=== PATIENT | female | born 1935 | race Caucasian/White ===

== ENCOUNTER 2017-11-20 12:42 | Emergency (ER) | payer MEDICARE ==
[~2017-11-20] VITALS: Ht 152.4 cm; Wt 54.4 kg
[~2017-11-20 12:42] MED LIST: ACID CONTROL20 MG PO; ADULT LOW DOSE81 MG PO; ALDACTONE25 MG PO; ATENOLOL 25MG T25 M1 PO; BAYER CHEWABLE81 MG PO; BUSPIRONE HCL5 MG PO; CELEXA20 MG PO; CITRACAL + D C1 EACH PO; COLACE100 MG PO; COUMADIN; COUMADIN 2 MG TA2 M1 PO; DESYREL100 MG PO; FLEXERIL PO; GLUCOTROL10 MG PO; HYDROCODON-ACE1 EAC7 PO; IRON18 M1 PO; KLOR-CON 1010 MEQ PO; LANOXIN 0.120.125 M1 PO; LASIX 20 MG TAB20 MG PO; LIDODERM 5%1 PATC1 TRANSDERM; LISINOPRIL20 MG PO; LORTAB 5 MG/5001 TA1 PO; METFORMIN HCL500 MG PO; METFORMIN PO; ZETIA10 MG PO
[2017-11-20] MEDS ORDERED: MI ACID LIQUID355 ML PO (12:50)
[2017-11-20] MEDS ORDERED: MIRALAX17 GM PO (12:51)
[2017-11-20] MEDS ORDERED: DURAGESIC1 EAC3 TRANSDERM (12:51)
[2017-11-20] MEDS ORDERED: ARTHRITIS PAIN650 M2 PO (12:51)
[2017-11-20] MEDS ORDERED: SENNA8.6 MG PO (12:51)
[2017-11-20] MEDS ORDERED: IPRATROPIU0.2 MG/1 M INH (12:52)
[2017-11-20 14:47] VITALS: BP 150/86
--- NOTE | 2017-11-20 17:14 | EKG ---
[place] [address] ELECTROCARDIOGRAM REPORT Name: GERRY LAINEZSUNITHA Varghese Room: [facility]#: [id number] Admission: 11/20/17 Attend Phys: Discharge: Date of : 31 Report #: [id number] THIS REPORT FOR: //name// [facility] ED Test Date: 2017-11-20 Test Time: 12:55:24 Pat Name: EVARISTO LAINEZ Department: Room: Gender: F Electrical Test Technician: AKANKSHA : 1935 Requested By: Rosey Chang Order Number: [id number] Reading MD: Addison Harvey Measurements Intervals [place] Rate: 86 P: NC: QRS: -46 QRSD: 102 T: 140 QT: 349 QTc: 418 Interpretive Statements Atrial fibrillation Left anterior fascicular block Abnormal R-wave progression, late transition LVH with secondary repolarization abnormality Compared to ECG 07/02/2009 15:33:43 Left anterior fascicular block now present Early repolarization now present Left-axis deviation no longer present ST (T wave) deviation no longer present Possible ischemia no longer present Electronically Signed On 11-20-2017 17:14:36 CDT by Addison Harvey [email or web address] <ELECTRONICALLY SIGNED> By: Addison Harvey MD, FACC 11/20/17 1714 1255 1255 Addison Harvey MD, FAC /EPI
== END 2017-11-20 14:49 | disposition home or self-care (01) ==
LOC: M.ERS 12:42
DX: M25.562 Pain in left knee (principal); E11.9 Type 2 diabetes mellitus without complications; I48.91 Unspecified atrial fibrillation; I10 Essential (primary) hypertension; G89.29 Other chronic pain; M54.9 Dorsalgia, unspecified; Z90.710 Acquired absence of both cervix and uterus; Z90.49 Acquired absence of other specified parts of digestive tract; Z91.041 Radiographic dye allergy status; Z88.8 Allergy status to other drugs, medicaments and biological substances; W18.39XA Other fall on same level, initial encounter; Y93.89 Activity, other specified; Y92.89 Other specified places as the place of occurrence of the external cause; Y99.8 Other external cause status

== ENCOUNTER 2018-05-20 20:02 | Inpatient (IN) | payer MEDICARE ==
[~2018-05-20] VITALS: Ht 167.6 cm; Wt 52.2 kg
[~2018-05-20 20:02] MED LIST changes: -ACID CONTROL20 MG PO; +ARTHRITIS PAIN650 M2 PO; +DURAGESIC1 EAC5 TRANSDERM; +FLOMAX0.4 MG PO; +GLUCOPHAGE1000 MG PO; +IPRATROPIU0.2 MG/1 M INH; -LASIX 20 MG TAB20 MG PO; +LASIX 40 MG TAB40 M2 PO; +LEVSIN0.125 MG PO; +LISINOPRIL10 MG PO; -LISINOPRIL20 MG PO; +MACROBID 100 M100 M2 PO; +MI ACID LIQUID355 ML PO; +MIRALAX17 GM PO; +MUCINEX600 MG PO; +PEPCID20 MG PO; +PREDNISONE 20 M20 MG PO; +SENNA8.6 MG PO; +TRAZODONE HCL50 MG PO; +WELLBUTRIN SR150 MG PO
[2018-05-20 20:06] VITALS: BP 93/53
[2018-05-20 20:43] LABS: HEMOGLOBIN 12.2 gm/dL (12.0-15.0); MCH 31.2 pg (26.0-34.0); MCV 94.5 fL (80.0-100.0); MPV 9.3 fl. (7.2-11.1); NUCLEATED RBCS 0 /100WBC; PLATELET COUNT* 246 thou/uL (150-400); RBC 3.92 mil/uL (4.20-5.00); RDW-CV 14.7 % (10.5-14.5); WBC 19.8 thou/uL (4.0-11.0)
[2018-05-20] MEDS ORDERED: MELATONIN3 MG PO (20:46)
[2018-05-20] MEDS ORDERED: SENNA8.6 MG (20:47)
[2018-05-20] MEDS ORDERED: POTASSIUM20 PO (20:47)
[2018-05-20] MEDS ORDERED: COUMADIN 1MG TAB1 M1 PO (20:48)
[2018-05-20] MEDS ORDERED: SPIRONOLACTONE25 M1 PO (20:48)
[2018-05-20] MEDS ORDERED: COUMADIN 2.5MG2.5 M1 PO (20:52)
[2018-05-20] MEDS ORDERED: COUMADIN 3 MG TA3 M1 PO (20:54)
[2018-05-20] MEDS ORDERED: NORCO 5-325 TA1 EACH PO (20:59)
[2018-05-20 21:02] LABS: INR 1.7; PROTIME 17.7 Seconds (9.20-11.50)
[2018-05-20] MEDS ORDERED: GABAPENTIN 100100 MG PO (21:02)
[2018-05-20] MEDS ORDERED: ONDANSETRON HCL4 M2 PO (21:02)
[2018-05-20 21:10] LABS: ABSOLUTE LYMPHOCYTES 2.4 thou/uL (0.8-5.3); ABSOLUTE MONOCYTES 0.8 thou/uL (0.0-1.2); ABSOLUTE NEUTROPHILS 16.6 thou/uL (1.6-8.1); PLATELET ESTIMATE ADEQUATE
[2018-05-20 21:11] LABS: ANION GAP 7 mmol/L (7-16); BUN 85 mg/dL (7-18); CALCIUM 8.9 mg/dL (8.5-10.1); CHLORIDE 108 mmol/L (98-107); CO2 31 mmol/L (21-32); GLUCOSE 144 mg/dL (70-99); POTASSIUM 5.4 mmol/L (3.5-5.1); SODIUM 146 mmol/L (136-145); TROPONIN-I LEVEL <0.06 ng/mL (<0.06)
[2018-05-20 21:12] LABS: ALBUMIN 2.8 g/dL (3.4-5.0); ALKALINE PHOSPHATASE 108 U/L (46-116); LIPASE 35 U/L (73-393); NT-PRO BRAIN NAT PEPTIDE 5623 pg/mL (<300); SGOT 19 U/L (15-37); SGPT 22 U/L (30-65); TOTAL BILIRUBIN 0.7 mg/dL (<0.1-1.0); TOTAL PROTEIN 6.2 g/dL (6.4-8.2)
[2018-05-20 23:56] LABS: URINE BILIRUBIN NEGATIVE (Negative); URINE BLOOD NEGATIVE (Negative); URINE CLARITY CLEAR; URINE COLOR YELLOW; URINE GLUCOSE-RANDOM NEGATIVE (Negative); URINE KETONES TRACE (Negative); URINE LEUKOCYTES-REFLEX TRACE (Negative); URINE NITRITE-REFLEX NEGATIVE (Negative); URINE PROTEIN NEGATIVE (Negative); URINE UROBILINOGEN 0.2 E.U./dl (0.2-1.0)
[2018-05-21 00:22] LABS: SQUAMOUS 4-10 Moderate /LPF (0-3)
[2018-05-21 00:23] LABS: HYALINE CASTS 0-3 Few /LPF (None Seen)
[2018-05-21 00:24] LABS: BACTERIA-REFLEX >30 Many /HPF (None Seen); URINE RBC 0-2 Rare /HPF (0-2); WBC CLUMPS Few (None Seen)
[2018-05-21 00:37] LABS: CRYSTALS None Seen /LPF (None Seen)
[2018-05-21 02:27] VITALS: BP 99/50
[2018-05-21 04:00] VITALS: BP 102/64
--- NOTE | 2018-05-21 06:29 | NUR ---
83 Y/O FEMALE ADMITTED TO TELEMETRY ROOM 201 WITH AN ADMITTING DIAGNOSIS OF ARF, HYPOTENSION, TACHYCARDIA. PT IS A&O X 1, EXPRESSIVE APHASIA. TRACING AFIB ON MONITOR. VSS. IVF INFUSING PER EMAR. ASSESSMENT COMPLETED CHARTED. HOURLY ROUNDING AND FALL PRECAUTIONS IN PLACE FOR SAFETY. Q2 TURNS TO MAINTAIN SKIN INTEGRITY. CLWR.
[2018-05-21 08:19] VITALS: BP 98/69
--- NOTE | 2018-05-21 09:53 | NUR ---
ASSUMED CARE OF PT THIS AM AROUND 0715- CARDAI MONITOR IN PLACE ORDERED, TRACING A-FIB/RATE CONTROLLED-UPON ASSESSMENT PT NOTED TO BE RESTING IN BED, RESTLESS AT TIMES- PT A&O X1, APHASIA NOTED- INCONTINENT OF BOWEL/HUMPHREYS IN PLACE D/D CLEAR FAUZIA URINE THIS AM- BED REST IN PLACE WITH Q 2 HOUR TURNS- LCTA, RESP EVEN ADND UN-LABORED- VSS, O2 SAT 100% ON 2L VIA NC- ABD SOFT/FLAT/NON-TENDER, BS X4 QUADS- SMALL INCONTINENT BM NOTED THIS AM- POOR PO INTAKE NOTED THIS AM WITH BREAKFAST- IV NOTED TO LEFT WRIST INTACT, IVF INFUSSING PRESCIBED- SEPSIS SCREEN NOTED POSITIVE THIS AM- NOTIFIED WITH ORDERS NOTED FOR 1L IVF BOLUS WITH MAINTENCE FLUIDS INCREASED TO 80ML/HR AND IV ABT ROCEPHIN STARTED AND GIVEN PRESCIBED- NEPHROLOGY CONSULT INITIATED THIS SHIFT R/T LEFTY- OLD FENT PATCH REMOVED FROM LEFT BACK SHOULDER WITH NEW PLACED TO RIGHT BACK SHOULDER THIS AM- BARRIOR CREAM TO BOTTOM INDICATED- CALL LIGHT AND PERSONAL BELONGINGS WITH IN REACH- HOURLY ROUNDS IN PLACE R/T SAFETY/NEEDS- BED/CHAIR ALARM IN PLACE R/T SAFETY- ALL NEEDS MET AT THIS TIME-TM
[2018-05-21 12:47] VITALS: BP 94/53
--- NOTE | 2018-05-21 12:47 | NUR ---
ST COG AND SWALLOW EVAL ATTEMPTED THIS DATE. PT'S FAMILY AT BEDSIDE. PT'S FAMILY REFUSED ST SERVICES. ST ATTEMPTED TO PROVIDE COMMUNICATION PICTURES TO ASSIST PT WITH COMMUNICATING BASIC WANTS AND NEEDS. PT'S FAMILY REFUSED THIS AND REPORTED PT HAS TRIED USING PICTURES IN THE PAST AND IT DID NOT WORK. PT'S FAMILY REPORTED THAT PT IS IN TOO MUCH PAIN AND UNCOMFORTABLE TO COMPLETE EVAL. FAMILY REPORTED IT IS TIME TO JUST KEEP THE PT COMFORTABLE INSTEAD OF REHABILITATING COMMUNICATION ABILITIES. ST WILL FOLLOW UP WITHIN THE NEXT 2-3 DAYS.
--- NOTE | 2018-05-21 13:26 | NUR ---
Nutrition: Consult received for "wt loss." Pt admitted with ARF, hypotension, dehydration. Wt in Mar, per [employer], was 123#; currently 97#. Some wt change d/t hydration status. Pressure ulcers on heels. Pt has expressive aphasia. ST will try swallow eval again in 2-3 days. H/o DM, CHF, UTI. Labs: BG 162, alb 2.8, prealb 12.6. RD ordered Ensure Clear tid for added nutrition while on CLD. Underweight R/T wt loss AEB 123# to 97# in one month. Some is R/T hydration status. Pt appears at mild to moderate nutrition risk. Will follow wt, diet order, po intake, labs 05/24/18.
--- NOTE | 2018-05-21 14:00 | NUR ---
CM spoke with Pt's son via phone. Pt is a LTC resident at [facility]. Son requested a hospice eval with [facility]. [place] systems planner to fax referral, updated Shira, [facility] liaison with [facility]. Plan return to [facility] mem care at [place]. SABRINA spoke with Shelley nurse at [facility], they are able to accept Pt back at [place]. Pt resides on the [facility] and the number is [phone]
--- NOTE | 2018-05-21 14:10 | NUR ---
I have reviewed the documentation by ADALGISA DOE from TODAY to 05/21/18 and I concur with it. CELESTE CHURCH
--- NOTE | 2018-05-21 14:18 | NUR ---
CONSTRUCTION SUPERVISOR INFORMED OF THE NEED TO CONTACT [facility] TO ARRANGE HOSPICE INFO VISIT AND EVAL. D/C IT TECHNICAL SPECIALIST SPOKE TO FELIX WITH [facility] TO INFORM OF THE REFERRAL AND FAXED THE PATIENT'S FACESHEET, AND CLINICAL INFO. D/C IT TECHNICAL SPECIALIST AWAITING RETURN CALL FROM [employer] TO INFORM OF WHEN INFO VISIT AND EVAL WILL BE COMPLETED. CM WILL REMAIN AVIALABLE TO ASSIST AND FOLLOW NEEDED. [facility] PHONE: [phone] FAX: [phone]
--- NOTE | 2018-05-21 16:25 | NUR ---
PT CURRNELTY RESTING IN BED, EDGE STITCHER CONTINUED ORDERED TRACING A-FIB-IV TO LEFT WRIST INTACT IVF INFUSSING PRESCIBED- 2L BOLUS GIVEN PRESCIBED THIS SHIFT- POOR PO INTAKE NOTED THIS SHIFT WITH MEALS- ASSISTANCE REQUIRED WITH MEALS- FAMILY AT SIDE MOST SHIFT- HOSPICE CONSULTED PER DPOA WITH PLANS TO D/C ON HOSPICE- ACCU CHECKS INDICATED THIS SHIFT- DIANELYS HEELS CLEANED WITH WW THIS SHIFT, ABD APPLIED, WRAPPED WITH BULKE GAUZE AND SECURED WITH TAPE- PRN FENT GIVEN TIMES 1 THIS SHIFT AT 1429- HYDROCODONE AT 1225 GIVEN, BUT PT NOTED TO SPIT HALF OUT- ENSURE ORDERED WITH MEALS THIS SHIFT- CALL LIGHT AND PERSONAL BELONGINGS WITH IN REACH- BED ALARM IN PLACE R/T SAFETY- HOURLY ROUNDS IN PLACE R/T SAFETY/NEEDS- ALL NEEDS MET AT THIS TIME-WCTM
--- NOTE | 2018-05-21 17:08 | EKG ---
[place] [address] ELECTROCARDIOGRAM REPORT Name: EVARISTO LAINEZ Halima Room: [address] ADM IN M.R.#: [id number] Admission: 05/20/18 Attend Phys: Amy Solares Discharge: Date of : 31 Report #: [id number] THIS REPORT FOR: //name// [facility] ED Test Date: 2018-05-20 Test Time: 22:56:19 Pat Name: EVARISTO LAINEZ Department: Room: [facility] [place] [facility] [place] Gender: F Paint Stock Clerk: : 1935 Requested By: Sarah Bentley Order Number: [id number] MD: Phillip Cuevas Measurements Intervals [place] Rate: 112 P: SC: QRS: -55 QRSD: 105 T: 132 QT: 338 QTc: 462 Interpretive Statements Atrial fibrillation Left anterior fascicular block Abnormal R-wave progression, late transition Repol abnrm suggests ischemia, lateral leads Compared to ECG 03/28/2018 16:41:19 No significant changes Electronically Signed On 05-21-2018 17:08:32 CDT by Phillip Cuevas [email or web address] <ELECTRONICALLY SIGNED> By: Phillip Cuevas MD, FACC 05/21/18 1708 2256 2256 Phillip Cuevas MD, FAC /EPI
[2018-05-21 17:38] VITALS: BP 112/71
[2018-05-22] VITALS (9 sets, daily range): BP systolic 99–181; BP diastolic 56–145
[2018-05-22 05:33] LABS: ABSOLUTE EOSINOPHILS 0.2 thou/uL (0.0-0.7); ABSOLUTE MONOCYTES 0.9 thou/uL (0.0-1.2); ABSOLUTE NEUTROPHILS 10.8 thou/uL (1.6-8.1); BASOPHILS 0.2 %; EOSINOPHILS 1.4 %; HEMATOCRIT 35.2 % (37.0-47.0); HEMOGLOBIN 11.1 gm/dL (12.0-15.0); LYMPHOCYTES 7.7 %; MCHC 31.7 g/dL (28.0-37.0); MPV 9.1 fl. (7.2-11.1); NUCLEATED RBCS 0 /100WBC; POLYS 83.7 %; RBC 3.49 mil/uL (4.20-5.00); RDW-CV 15.2 % (10.5-14.5); WBC 12.9 thou/uL (4.0-11.0)
--- NOTE | 2018-05-22 05:42 | NUR ---
RECEIVED REPORT AND ASSUMED CARE AT 1900. VSS. CARDIAC MONITORING IN PLACE. PT APPEARS TO BE ANXIOUS/RESTLESS. EXPRESSIVE APHASIA. GIMACING AND HOLDING STOMACH. PT REPOSITIONED, PRN MEDICATION ADMIN PER ORDERS. PT BEDREST, ASSESSMENT COMPLETED CHARTED. BED LOCKED IN LOWEST POSITION, CALL LIGHT WITHIN REACH, BD ALARM ON. POSITION CHANGED EVERY TWO HOURS, HEELS OFF LOADED. PT NON COMPLIANT WITH PO MEDICATION, REFUSING TO SWALLOW MEDICATION. HOURLY ROUNDING COMPLETED AND ALL NEEDS MET.
[2018-05-22 05:44] LABS: INR 1.9; PROTIME 19.3 Seconds (9.20-11.50)
[2018-05-22 05:47] LABS: MCV 100.9 fL (80.0-100.0); PLATELET COUNT* 162 thou/uL (150-400)
[2018-05-22 05:59] LABS: ALBUMIN 2.2 g/dL (3.4-5.0); CALCIUM 8.1 mg/dL (8.5-10.1); POTASSIUM 4.6 mmol/L (3.5-5.1); TOTAL BILIRUBIN 0.3 mg/dL (<0.1-1.0); TOTAL PROTEIN 5.4 g/dL (6.4-8.2)
[2018-05-22 06:01] LABS: CREATININE 1.5 mg/dL (0.6-1.3)
--- NOTE | 2018-05-22 15:06 | NUR ---
WOUND CARE NOTE: ASSESSMENT FOR PRESSURE ULCERS TO BILATERAL HEELS. RIGHT HEEL: UNSTAGEABLE PRESSURE ULCER COMPLICATED BY DIABETES. WOUND IS APPROXIMATELY 1.5X0.5X0.1. DRY, BLACK WOUND BED. JAQUI-WOUND WITH SHADOWING, CALLUS. BLANCHABLE REDNESS. FEET ARE COOL TO TOUCH. PATIENT VERY ANXIOUS DURING ASSESSMENT, KEPT PULLING HER FEET AWAY. UNABLE TO PALPATE PULSES. FAINT PEDAL PULSE HEARD ON DOPPLER. PAINTED ULCERATION WITH BETADINE. COVERED WITH ABD. SECURED WITH KERLIX. APPLIED HEELMEDIX BOOT LEFT HEEL: UNSTAGEABLE PRESSURE ULCER COMPLICATED BY DIABETES. WOUND IS APPROXIMATELY 0.5X1X0.1. DRY, BLACK WOUND BED. JAQUI-WOUND WITH SHADOWING, CALLUS. BLANCHABLE REDNESS. FOOT IS COOL TO TOUCH, ABLE TO DOPPLE PEDAL PULSE. VERY ANXIOUS DURING ASSESSMENT, KEPT PULLING FEET AWAY. PAINTED ULCERATION WITH BETADINE. COVERED WITH ABD. SECURED WITH KERLIX. APPLIED HEELMEDIX BOOT. UNABLE TO EDUCATE PATIENT AT THIS TIME ON WOUND HEALING, PATIENT EXTREMELY ANXIOUS. RECOMMEND HEELMEDIX BOOTS, BILATERALLY DAILY DRESSING CHANGES ENCOURAGE GOOD NUTRTION/HYDRATION FOR WOUND HEALING
--- NOTE | 2018-05-22 16:32 | CON ---
[address] [address] CONSULTATION Name: EVARISTO LAINEZ Room: [address] IN M.R.#: [id number] Admission: 05/20/18 Attend Phys: Amy Solares Discharge: Date of : 31 Report #: [id number] THIS REPORT FOR: //name// CC: Ana Cristina Bonilla DATE OF SERVICE: 05/21/2018 REQUESTING PHYSICIAN: Sukhjinder Granados MD REASON FOR CONSULTATION: Acute kidney injury. 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 She is a [facility] resident and usually does not walk, does not talk, follows some simple commands. She was transferred here for weight loss and poor p.o. intake. She was admitted and was diagnosed with acute kidney injury, possible pneumonia, possible UTI. Her creatinine was 3.0, potassium 5.4. Her blood cultures preliminary with no growth. Urine cultures were pending. Her urinalysis showed trace white blood cells, some bacteria. 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 She was seen by urologist in the past. She was started on IV fluids and on Rocephin. She is DNR. SOCIAL HISTORY: [facility] resident. No tobacco or alcohol abuse. FAMILY HISTORY: Noncontributory. REVIEW OF SYSTEMS: Unobtainable. PAST MEDICAL HISTORY: As mentioned earlier. PHYSICAL EXAMINATION: GENERAL: She is awake, alert. VITAL SIGNS: Blood pressure 94/53, heart rate 87, afebrile. HEENT: Pupils are round. NECK: Supple. LUNGS: Decreased air movement. CARDIOVASCULAR: Regular rate. [address] [address] CONSULTATION Name: EVARISTO LAINEZ Halima Room: [address] IN [facility].#: [id number] Admission: 05/20/18 Attend Phys: Amy Solares Discharge: Date of : 31 Report #: [id number] ABDOMEN: Soft. LOWER EXTREMITIES: No edema. LABORATORY DATA: Significant for a white count of 19.8. Serum sodium 146, potassium 5.4, chloride 108, carbon dioxide 31, BUN 85, creatinine 3.0. ASSESSMENT: 1. Acute kidney injury due to poor p.o. intake and also she was taking spironolactone, lisinopril and potassium. 2. Hyperkalemia due to spironolactone, potassium, lisinopril, and acute kidney injury. 3. Dementia. 4. Possible urinary tract infection. 5. Possible pneumonia. PLAN: 1. Gentle hydration. 2. Avoid spironolactone, avoid AUSTYN inhibitors, avoid angiotensin receptor blockers, and avoid potassium. 3. Follow her labs. 4. The patient is not a dialysis candidate. Discussed with the family and they agreed with the plan. <ELECTRONICALLY SIGNED> By: Phil Castellanos MD 05/22/18 1632 1628 [id number] Castellanos MD /PMT
--- NOTE | 2018-05-23 01:26 | NUR ---
ASSUMED CARE OF PT AT 1900. PT IS VERY CONFUSED. NO COMPLAINTS OF PAIN AT THIS TIME. VSS. PT IS IN SINUS RYTHM ON THE TELEMETRY. PT IS RESTING COMFORTABLY IN BED. RESPIRATIONS ARE EVEN AND NONLABORED. WILL CONTINUE TO MONITOR PT.
[2018-05-23 03:57] VITALS: BP 100/71
[2018-05-23 05:08] LABS: INR 2.8; PROTIME 28.6 Seconds (9.20-11.50)
[2018-05-23 05:21] LABS: ALBUMIN 2.3 g/dL (3.4-5.0); CALCIUM 8.5 mg/dL (8.5-10.1); CREATININE 1.2 mg/dL (0.6-1.3); POTASSIUM 3.9 mmol/L (3.5-5.1); TOTAL BILIRUBIN 0.2 mg/dL (<0.1-1.0); TOTAL PROTEIN 5.5 g/dL (6.4-8.2)
[2018-05-23 07:30] VITALS: BP 97/47
[2018-05-23 08:44] LABS: ABSOLUTE EOSINOPHILS 0.2 thou/uL (0.0-0.7); ABSOLUTE MONOCYTES 0.6 thou/uL (0.0-1.2); ABSOLUTE NEUTROPHILS 6.5 thou/uL (1.6-8.1); BASOPHILS 0.2 %; EOSINOPHILS 2.9 %; HEMATOCRIT 35.6 % (37.0-47.0); HEMOGLOBIN 11.6 gm/dL (12.0-15.0); LYMPHOCYTES 11.5 %; MCH 31.8 pg (26.0-34.0); MCHC 32.6 g/dL (28.0-37.0); MCV 97.5 fL (80.0-100.0); MPV 8.9 fl. (7.2-11.1); NUCLEATED RBCS 0 /100WBC; PLATELET COUNT* 193 thou/uL (150-400); POLYS 78.4 %; RBC 3.65 mil/uL (4.20-5.00); RDW-CV 14.9 % (10.5-14.5); WBC 8.3 thou/uL (4.0-11.0)
[2018-05-23 12:34] VITALS: BP 133/69
[2018-05-23 14:35] LABS: PREALBUMIN 11.9 mg/dL (18.0-35.7)
[2018-05-23 15:52] LABS: POTASSIUM 3.8 mmol/L (3.5-5.1)
[2018-05-23 16:18] VITALS: BP 122/68
[2018-05-23 19:25] VITALS: BP 118/65
[2018-05-24] VITALS: BP 144/73
--- NOTE | 2018-05-24 02:10 | NUR ---
ASSUMED CARE OF PT AT 1900. PT HAS BEEN SLEEPING SINCE BEGINNING OF SHIFT. PT A Q2 TURN. VSS. NO SIGNS OF PAIN AT THIS TIME. PT IS IN A FIB ON THE TELEMETRY. PT IS RESTING COMFORTABLY IN BED. RESPIRATIONS ARE EVEN AND NONLABORED. WILL CONTINUE TO MONITOR PT.
[2018-05-24 04:00] VITALS: BP 116/72
[2018-05-24 05:26] LABS: PROTIME 40.5 Seconds (9.20-11.50)
[2018-05-24 05:39] LABS: POTASSIUM 3.4 mmol/L (3.5-5.1)
[2018-05-24 12:00] VITALS: BP 120/70
--- NOTE | 2018-05-24 12:07 | NUR ---
SUPERINTENDENT REFUSE DISPOSAL INFORMED BY DR ABBASI THAT THE PATIENT WILL REMAIN IN THE HOSPITAL OVER THE WEEKEND. PLAN REMAINS THAT THE PATIENT WILL RETURN TO A MEMORY CARE BED AT [facility]. CM WILL REMAIN AVAILABLE TO ASSIST AND FOLLOW NEEDED.
[2018-05-24 16:00] VITALS: BP 145/82
[2018-05-24 19:25] VITALS: BP 143/86
[2018-05-25] VITALS: BP 135/77
--- NOTE | 2018-05-25 03:26 | NUR ---
ASSUMED CARE OF PT AT 1900. PT IS VERY LETHARGIC AND HAS BEEN ASLEEP. PT IS A Q2 TURN. VSS. PT IS IN A FIB ON THE TELEMETRY. PT IS RESTING COMFORTABLY IN BED. RESPIRATIONS ARE EVEN AND NONLABORED. WILL CONTINUE TO MONITOR PT.
[2018-05-25 04:00] VITALS: BP 145/79
[2018-05-25 04:57] LABS: HEMATOCRIT 30.4 % (37.0-47.0); HEMOGLOBIN 10.3 gm/dL (12.0-15.0); MCH 32.3 pg (26.0-34.0); MCHC 33.7 g/dL (28.0-37.0); MCV 95.8 fL (80.0-100.0); MPV 8.7 fl. (7.2-11.1); RBC 3.17 mil/uL (4.20-5.00); RDW-CV 14.4 % (10.5-14.5); WBC 6.2 thou/uL (4.0-11.0)
[2018-05-25 05:04] LABS: PROTIME 40.6 Seconds (9.20-11.50)
[2018-05-25 05:07] LABS: CALCIUM 7.6 mg/dL (8.5-10.1); CREATININE 0.8 mg/dL (0.6-1.3); MAGNESIUM 1.4 mg/dL (1.8-2.4); POTASSIUM 3.2 mmol/L (3.5-5.1); TOTAL BILIRUBIN 0.2 mg/dL (<0.1-1.0); TOTAL PROTEIN 4.7 g/dL (6.4-8.2)
--- NOTE | 2018-05-25 07:15 | NUR ---
CHANGE OF SHIFT BEDSIDE REPORT GIVEN PATIENT SEEN AT BEDSIDE, IN BED ASLEEP ASSUMED PATIENT CARE
[2018-05-25 08:00] VITALS: BP 126/68
[2018-05-25 12:06] VITALS: BP 143/94
[2018-05-25 15:33] VITALS: BP 145/83
[2018-05-25 20:00] VITALS: BP 138/88
[2018-05-26] VITALS: BP 155/95
[2018-05-26 04:00] VITALS: BP 157/92
[2018-05-26 04:55] LABS: INR 2.6; PROTIME 26.2 Seconds (9.20-11.50)
--- NOTE | 2018-05-26 05:15 | NUR ---
ASSUMED CARE OF PT AFTER REPORT AT 1930. PT IS CONFUSED & LETHARGIC. VSS. PHYSICAL ASSESSMENT COMPLETED AND CHARTED. PT ON O2 AT 3L NC WITH 95% O2 SAT. PT TRACING AFIB ON TELE. PT WITH HUMPHREYS TO DEPENDENT DRAIN. PT TURNED TO SIDES. PAIN MEDS GIVEN PER MAY. POTASSIUM 3.2. ELECTROLYTE PROTOCOL IN PLACE. RIGHT & LEFT HEEL WOUNDS CLEANED WITH WOUND CLEANSER & PAT DRY. PAINT WITH BETADINE, COVER WITH ABD & KERLIX. PHOTOGRAPH TAKEN. FALL PRECAUTIONS IN PLACE.
--- NOTE | 2018-05-26 07:15 | NUR ---
CHANGE OF SHIFT, BEDSIDE REPORT GIVEN PATIENT SEEN AT BEDSIDE, IN BED RESTING ASSUMED PATIENT CARE
[2018-05-26 08:00] VITALS: BP 155/91
[2018-05-26 12:06] VITALS: BP 140/73
[2018-05-26 15:42] VITALS: BP 153/40
[2018-05-26 20:00] VITALS: BP 148/98
[2018-05-27] VITALS: BP 115/81
[2018-05-27 04:00] VITALS: BP 171/96
[2018-05-27 05:08] LABS: ABSOLUTE EOSINOPHILS 0.1 thou/uL (0.0-0.7); ABSOLUTE LYMPHOCYTES 0.9 thou/uL (0.8-5.3); ABSOLUTE MONOCYTES 0.8 thou/uL (0.0-1.2); ABSOLUTE NEUTROPHILS 6.3 thou/uL (1.6-8.1); BASOPHILS 0.3 %; EOSINOPHILS 1.3 %; HEMATOCRIT 31.1 % (37.0-47.0); HEMOGLOBIN 10.9 gm/dL (12.0-15.0); LYMPHOCYTES 11.1 %; MCH 32.4 pg (26.0-34.0); MCV 92.7 fL (80.0-100.0); MONOCYTES 10.1 %; MPV 9.2 fl. (7.2-11.1); NUCLEATED RBCS 0 /100WBC; PLATELET COUNT* 147 thou/uL (150-400); POLYS 77.2 %; RBC 3.35 mil/uL (4.20-5.00); RDW-CV 14.5 % (10.5-14.5); WBC 8.2 thou/uL (4.0-11.0)
--- NOTE | 2018-05-27 05:08 | NUR ---
ASSUMED CARE OF PT AFTER REPORT AT 1930. PT IS LETHARGIC & CONFUSED. VSS. PHYSICAL ASSESSMENT COMPLETED AND CHARTED. PT ON O2 AT 2L WITH 92% O2 SAT. PT TRACING AFIB ON TELE. PT WITH HUMPHREYS TO DEPENDENT DRAIN. PAIN MEDS GIVEN PER MAY. HOURLY ROUNDING OBSERVED. HS REST & SAFETY GOALS ACHIEVED. PT TURNED TO SIDES. FALL PRECUTIONS IN PLACE.
[2018-05-27 05:16] LABS: INR 2.2; PROTIME 22.2 Seconds (9.20-11.50)
[2018-05-27 05:24] LABS: CALCIUM 8.3 mg/dL (8.5-10.1); CREATININE 0.7 mg/dL (0.6-1.3); POTASSIUM 4.2 mmol/L (3.5-5.1)
[2018-05-27 08:00] VITALS: BP 153/90
--- NOTE | 2018-05-27 10:30 | NUR ---
Pt discharging back to [facility] today. Faxed dc orders, chart copied. Nurse report number is [phone]. Updated Pt's son and DIL of disposition. Updated [facility] of disposition, they will meet Pt at the facility. Ambulance to machine pecan picker at 2pm.
[2018-05-27] MEDS ORDERED: CEFUROXIME500 MG PO (12:35)
[2018-05-27 12:37] VITALS: BP 153/90; BP 154/93
--- NOTE | 2018-05-27 14:15 | NUR ---
RECEIVED REPORT FORM TIP STUBBS. ASSUMED CARE OF PT AROUND 0730. PT CONFUSED, LETHARGIC, DOES RESPOND TO TOUCH AND VERBAL STIMULUS WITH A GROAN. VSS. AM ASSESSMENT AND VITALS COMPELTED CHARTED. CRYSTAL MACHINING COORDINATOR IN PLACE TRACING AFIB. BILATERAL HEEL WOUND DRESSINGS CHANGED. DC PICS TAKEN. PT RESTLESS AND GROAING AFTER WOUND CARE, IV PAIN MEDICATION GIVEN WITH RELIEF (PT ABLE TO REST PEACEFULLY). PT UNABLE TO ROUSE FOR PO MEDICATIONS. PT UNABLE/UNWILLING TO EAT. BILATERAL HEEL BOOTS IN PLACE. HUMPHREYS IN PLACE AND DRAINING. DISCHARGE ORDERS RECEIVED FOR PT TO RETURN TO [facility]. DISCHARGE COMPLETED DOCUMENTED. DISCAHRGE PACKET PLACED IN ENVELOPE FOR FACTILIY. IV AND CRYSTAL MACHINING COORDINATOR REMOVED. ALL BELONGINGS GATHERED AND SENT OUT WITH PT. FAMILY AT BEDSIDE AT TIME OF DC. REPORT CALLED TO ELENA AT [facility].
== END 2018-05-27 14:00 | DRG 871 ==
LOC: M.ERS 20:02 → M.2W 22:02 → M.TBA-ER 22:02 → M.2W 05-21 02:15
PROVIDERS: Emergency Medicine; Internal Medicine; ADMIT Internal Medicine
DX: A41.9 Sepsis, unspecified organism (principal); E43 Unspecified severe protein-calorie malnutrition; N17.0 Acute kidney failure with tubular necrosis; J69.0 Pneumonitis due to inhalation of food and vomit; G93.40 Encephalopathy, unspecified; N39.0 Urinary tract infection, site not specified; E87.0 Hyperosmolality and hypernatremia; Z68.1 Body mass index [BMI] 19.9 or less, adult; I48.2 Chronic atrial fibrillation; G89.29 Other chronic pain; E86.0 Dehydration; T50.0X5A Adverse effect of mineralocorticoids and their antagonists, initial encounter; E87.5 Hyperkalemia; I12.9 Hypertensive chronic kidney disease with stage 1 through stage 4 chronic kidney disease, or unspecified chronic kidney disease; N18.3 Chronic kidney disease, stage 3 (moderate); E11.22 Type 2 diabetes mellitus with diabetic chronic kidney disease; R62.7 Adult failure to thrive; Z51.5 Encounter for palliative care; M54.9 Dorsalgia, unspecified; B96.1 Klebsiella pneumoniae [K. pneumoniae] as the cause of diseases classified elsewhere; I95.9 Hypotension, unspecified; F03.90 Unspecified dementia, unspecified severity, without behavioral disturbance, psychotic disturbance, mood disturbance, and anxiety; L89.609 Pressure ulcer of unspecified heel, unspecified stage; Z88.8 Allergy status to other drugs, medicaments and biological substances; I69.320 Aphasia following cerebral infarction; Z91.041 Radiographic dye allergy status; Z90.49 Acquired absence of other specified parts of digestive tract; Z90.710 Acquired absence of both cervix and uterus; Z95.5 Presence of coronary angioplasty implant and graft; Y92.89 Other specified places as the place of occurrence of the external cause; Z79.1 Long term (current) use of non-steroidal anti-inflammatories (NSAID); Z79.899 Other long term (current) drug therapy; Z79.84 Long term (current) use of oral hypoglycemic drugs